=== PATIENT | female | born 2000 | race Caucasian/White ===

== ENCOUNTER 2023-03-13 11:46 | Emergency (ER) | payer OTHER, SELFPAY ==
[2023-03-13] VITALS (7 sets, daily range): BP systolic 110–125; BP diastolic 55–87; PULSE 81–96; RESP 15–34; TEMP 36.7; O2SAT 97–100
--- NOTE | ~2023-03-13 | XR_ITS ---
EXAMINATION: XR chest 2V DATE: 03/13/2023 12:56 INDICATION: Chest pain. TECHNIQUE: Frontal and lateral views of the chest were obtained. COMPARISON: None. FINDINGS: There is no pneumonia, pleural effusion, or pneumothorax. The heart size is normal. IMPRESSION: 1. No acute cardiopulmonary disease. Reviewed, dictated and finalized at location A.
--- NOTE | 2023-03-13 11:57 | ECG_ITS ---
Measurements Intervals [place] Rate: 87 P: 35 NH: 114 QRS: -5 QRSD: 90 T: -5 QT: 334 QTc: 403 Interpretive Statements SINUS RHYTHM WITH SINUS ARRHYTHMIA WITH SHORT NH INTERVAL INCOMPLETE RIGHT BUNDLE BRANCH BLOCK MINIMAL Q WAVES- HIGH LATERAL LEADS BORDERLINE ST-T WAVE ABNORMALITY- ANT/INF LEADS BASELINE ARTIFACT- II, III, AVF BORDERLINE ECG NO PREVIOUS ECG AVAILABLE FOR COMPARISON Electronically Signed On 03-13-2023 12:48:04 CDT by Alejandro Sandoval D.O.
[2023-03-13 12:33] LABS: Basophils Absolute Auto 0.1 K/mm3 (0.0-0.1); Basophils Percent Auto 0.9 % (0.2-1.2); Eosinophils Absolute Auto 0.3 K/mm3 (0-0.3); Eosinophils Percent Auto 2.8 % (0-4.4); Hematocrit 41.5 % (37.0-47.0); Immature Granulocyte Absolute 0.03 K/mm3 (0.00-0.031); Immature Granulocyte Percent A 0.3 % (0-0.5); Lymphocytes Absolute Auto 2.14 K/mm3 (0.9-3.2); Lymphocytes Percent Auto 20.7 % (18.3-44.2); Mean Corpuscular HGB Conc 31.3 g/dl (32-36); Mean Corpuscular Hemoglobin 25.1 pg (26-34); Mean Corpuscular Volume 80.1 fl (80-100); Mean Platelet Volume 10.5 fl (7.4-10.4); Monocytes Absolute Auto 0.7 K/mm3 (0.1-0.6); Monocytes Percent Auto 6.9 % (2.6-8.5); Neutrophils Absolute Auto 7.1 K/mm3 (1.3-6.7); Neutrophils Percent Auto 68.4 % (45.5-73.1); Platelet Count Result 280 k/mm3 (150-375); Red Blood Count 5.18 M/mm3 (4.2-5.4); Red Cell Distribution Width 14.6 % (11.5-14.5); White Blood Count 10.3 K/mm3 (4.5-10.0)
[2023-03-13 12:41] LABS: Alanine Aminotransferase 18 U/L (6-35); Albumin Level 4.4 g/dL (3.5-5.1); Alkaline Phosphatase 112 U/L (38-126); Anion Gap 8 mmol/L (8-16); Aspartate Amino Transferase 21 U/L (14-36); Bilirubin,Total 0.4 mg/dL (0.2-1.3); Blood Urea Nitrogen 14 mg/dL (7-17); Calcium 9.6 mg/dL (8.4-10.2); Carbon Dioxide 23 mmol/L (22-30); Chloride 103 mmol/L (98-107); Estimated CRCL calculation 127 ml/min; Estimated Glomerular Filt Rate > 60; Glucose 97 mg/dL (65-110); Lipase 57 U/L (23-300); Potassium 4.2 mmol/L (3.4-5.0); Sodium 134 mmol/L (137-145)
[2023-03-13 12:50] LABS: Prothrombin Time 13.6 Seconds (11.1-14.7)
[2023-03-13 12:52] LABS: Partial Thromboplastin Time 27.1 SECONDS (22.3-36.8)
[2023-03-13 12:53] LABS: Troponin I < 0.012 ng/mL (0.000-0.034)
[2023-03-13 13:08] LABS: Influenza A QL RT-PCR Negative (Negative); Influenza B QL RT-PCR Negative (Negative); SARS-CoV-2 RNA PCR Negative (Negative)
[2023-03-13 15:56] LABS: Troponin I < 0.012 ng/mL (0.000-0.034)
[2023-03-13] MEDS: PANTOPRAZOLE 40 MG TABLET PO (16:42)
[2023-03-13] MEDS: BELLADONNA ALK/PHENOB ELIX 10 ML, MAG HYDROX/ALUMINUM HYD/SIMETH 30 ML, LIDOCAINE HCL 2... PO (16:42)
--- NOTE | 2023-03-13 17:12 | ED.CHESTPAIN ---
HPI - Chest Pain General Chief Complaint: Chest Pain Stated Complaint: cp Time Seen by Provider: 03/13/23 15:34 History of Present Illness HPI narrative: This is a 22-year-old female, with past history of of depression, who presents emergency department complaining of 4 days of burning substernal chest pain. The patient denies any known initially aggravating factors. She rates the pain 7/10, aggravated by swallowing and alleviated with rest. She occasionally complains of epigastric pain after eating. She denies difficulty breathing, loss of consciousness, palpitations or weakness/numbness. Related Data Allergies Allergy/AdvReac Type Severity Reaction Status Date / Time Sulfa (Sulfonamide Allergy Anaphylaxis Verified 03/13/23 15:07 Antibiotics) azithromycin AdvReac Nausea and Verified 03/13/23 15:07 Vomiting Review of Systems Review of Systems: CONSTITUTIONAL: Denies fever, chills, or sweats. CARDIOVASCULAR: Burning substernal chest pain denies palpitations, or edema. RESPIRATORY: Denies cough or dyspnea. GASTROINTESTINAL: Denies abdominal pain, nausea, vomiting, or diarrhea. GENITOURINARY: Denies dysuria or hematuria. SKIN: Denies rash or itching. MUSCULOSKELETAL: Denies back pain, joint pain, or myalgia. NEUROLOGIC: Denies headache, numbness, dizziness, or weakness. PSYCHIATRIC: Denies anxiety or depression. PMFSH Past Medical History Medical History (Updated 03/13/23 @ 20:25 by Carlos Garibay MD) Depression Surgical History Surgical History (Updated 03/13/23 @ 20:25 by Carlos Garibay MD) No significant past surgical history Social History Social History (Updated 03/13/23 @ 20:25 by Carlos Garibay MD) Tobacco type: e-cigarettes/vaping Alcohol intake: never Substance use: never Exam Narrative: GENERAL: Well-developed, well-nourished, and in no acute distress. HEAD: Normocephalic, atraumatic. EYES: PERRLA and EOMI. ENT: Nares clear, no rhinorrhea or epistaxis. Mucous membranes moist. Oropharynx without tonsillar hypertrophy exudate or other lesions. NECK: Supple. No JVD CHEST: Clear to auscultation. No respiratory distress. No wheezes rales or rhonchi HEART: Regular rate and rhythm. No murmur heard. Normal peripheral pulses. ABDOMEN: Soft, nontender, nondistended, normal active bowel sounds. EXTREMITIES: Normal range of motion. No edema. SKIN: Warm, dry, no rash. NEURO: Alert and oriented x3. Moving all 4 limbs purposefully. PSYCH: Normal mood and affect. Course Course Emergency Course: 17:04 - Troponin negative x2. EKG not concerning for ischemia. Heart score 1. chest x-ray unremarkable. On reevaluation after GI cocktail, the patient seems her pain is significantly improved. I suspect her pain is related to GERD with esophagitis. Will discharge with a PPI and recommendation to follow-up with her primary care doctor. She has an appointment in 2 days. Discussed return and emergency precautions including signs/symptoms of acute abdomen and intractable vomiting. The patient voiced understanding and is comfortable with the plan. All questions answered to her satisfaction. Vital Signs Vital signs: Vital Signs Temperature 98.0 F 03/13/23 12:02 Pulse Rate 81 03/13/23 12:02 Respiratory Rate 16 03/13/23 12:02 Blood Pressure 123/55 L 03/13/23 12:02 Pulse Oximetry 100 03/13/23 12:02 Oxygen Delivery Room Air 03/13/23 12:02 Temperature 98.0 F 03/13/23 12:02 Pulse Rate 89 03/13/23 17:32 Respiratory Rate 18 03/13/23 17:32 Blood Pressure 125/84 03/13/23 17:32 Pulse Oximetry 97 03/13/23 17:32 Oxygen Delivery Room Air 03/13/23 12:02 MDM - Chest Pain MDM Narrative Medical decision making narrative: Plan: Labs, EKG, pain control, imaging, test, reassess Differential Diagnosis Differential diagnosis: Likely pneumothorax and other (ACS, pneumonia, pneumothorax, GERD, , metabolic abnormality, othe
== END 2023-03-13 17:34 | disposition home or self-care (01) ==
PROVIDERS: Emergency Provider Preventive Medicine Aerospace Medicine
DX: R07.89 Other chest pain (principal); K21.00 Gastro-esophageal reflux disease with esophagitis, without bleeding; Z20.822 Contact with and (suspected) exposure to COVID-19; F17.290 Nicotine dependence, other tobacco product, uncomplicated; I45.10 Unspecified right bundle-branch block; R94.31 Abnormal electrocardiogram [ECG] [EKG]
CPT/HCPCS: 36415; 71046; 80053; 83690; 84484; 85025; 85610; 85730; 87636; 93005; 99284; A9270